=== PATIENT | male | born 1990 | race American Indian/Alaskan Native ===

== ENCOUNTER 2016-06-29 08:43 | Emergency (ER) | payer OTHER, BC ==
[2016-06-29 09:44] VITALS: BP 124/78
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
[2016-06-29] MEDS ORDERED: PERCOCET 5/325 PO ONE (13:04)
[2016-06-29] MEDS ORDERED: ZOFRAN ODT PO ONE (13:04)
== END 2016-06-29 13:48 | disposition home or self-care (01) ==
LOC: ED 08:43
DX: S09.90XA Unspecified injury of head, initial encounter (principal); M54.2 Cervicalgia; M79.602 Pain in left arm; V49.49XA Driver injured in collision with other motor vehicles in traffic accident, initial encounter; Y93.89 Activity, other specified; Y99.8 Other external cause status; Y92.89 Other specified places as the place of occurrence of the external cause
CPT/HCPCS: 70450; 72125; Q0162